=== PATIENT | male | born 1985 | race Caucasian/White ===

== ENCOUNTER 2017-05-11 13:18 | Emergency (ER) | payer SELFPAY ==
--- NOTE | 2017-05-11 13:39 | UC ---
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 PT has not taking anything to alleviate pain. Pain throbbing is 7/10 with movement associated with mild numbness and decrease movement around the area. Pt denies fever, SOB, chest pain, abdominal pain, N/V/D. - History of Current Complaint Chief Complaint: UCUpperExtremity Stated Complaint: WC-LFT HAND INJURY Time Seen by Provider: 05/11/17 13:36 Hx Obtained From: Patient Onset/Duration: Sudden Onset, Lasting Hours - 3 hrs, Still Present Severity Initially: Moderate Severity Currently: Moderate Pain Intensity: 7 Pain Scale Used: 0-10 Numeric Location Of Pain: Is Discrete @ - at the base of left thumb Character: Throbbing Aggravating Factor(s): Movement, Lifting, Flexion, Extension Alleviating Factor(s): Ice, Rest Associated Signs And Symptoms: Positive: Swelling, Numbness/Tingling - Risk Factors Non-Orthopedic Risk Factor: Negative DVT Risk Factors: Negative Septic Arthritis Risk Factor: Negative Compartment Syndrome Risk Factors: Pain - Allergies/Home Medications Allergies/Adverse Reactions: Allergies Allergy/AdvReac Type Severity Reaction Status Date / Time No Known Allergies Allergy Verified 05/11/17 13:36 PMH/Surg Hx/FS Hx/Imm Hx Previously Healthy: Yes - Pt denies PMHX - Surgical History Surgical History: None Surgery Procedure, Year, and Place: TEAR DUCT SX - Family History Known Family History: Positive: Hypertension, Diabetes - Social History Occupation: Employed Full-time Lives: With Family Alcohol Use: Occasionally Substance Use Type: None Smoking Status (MU): Current Every Day Smoker Type: Cigarettes Amount Used/How Often: LESS THAN 1 PPD Length of Time of Smoking/Using Tobacco: 10 YRS Have You Smoked in the Last Year: Yes Review of Systems Constitutional: Negative Skin: Negative Eyes: Negative ENT: Negative Respiratory: Negative Cardiovascular: Negative Gastrointestinal: Negative Genitourinary: Negative Motor: Decreased ROM - lef thumb Musculoskeletal: Decreased ROM - left thumb, Other: - left thumb pain s/p injury Neurological: Negative Psychological: Negative Is Patient Immunocompromised?: No All Other Systems Reviewed And Are Negative: Yes Physical Exam Triage Information Reviewed: Yes Vital Signs: Initial Vital Signs Temp 98.6 F 05/11/17 13:33 Pulse 80 05/11/17 13:33 Resp 16 05/11/17 13:33 BP 119/86 05/11/17 13:33 Pulse Ox 100 05/11/17 13:33 - Additional Comments Vital Signs Reviewed: Yes General: Well developed well nourished male sitting in the examining table w/o any apparent distress Eyes: Positive: Conjunctiva Clear - PERRLA, EOMI ENT: Positive: Normal ENT inspection, Hearing grossly normal, Pharynx normal, TMs normal Neck: Positive: Supple, Nontender, No Lymphadenopathy Respiratory: Positive: Chest non-tender, Lungs clear, Normal breath sounds, No respiratory distress Cardiovascular: Positive: RRR, No Murmur, Pulses Normal, Brisk Capillary Refill Abdomen Description: Positive: Nontender, No Organomegaly, Soft. Negative: CVA Tenderness (R), CVA Tenderness (L) Bowel Sounds: Positive: Present Musculoskeletal: Positive: Strength Intact, No Edema, Other: - Hand/Fingers: the L hand is without obvious asymmetry or deformity when compared to the R hand. mild swelling around dorsal side of LF #1 MCPJ, , no erythema, atrophy, No surface trauma, open wounds,bony deformity. Normal cascade of fingers. Normal flexion and extension of fingers, except for LF #1 phalanx due to pain. . Pulses and capillary refill WNL, positive reflexes and sensation intact, capillary refill brisk. 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 PT has not taking anything to alleviate pain. Pain throbbing is 7/10 with movement associated with mild numbness and decrease movement around the area. Pt denies fever, SOB, chest pain, abdominal pain, N/V/ D. Hx obtained. Left # first digit X-ray ordered: impression: There was no fracture, dislocation, soft tissue swelling. Probably a finger sprain. Pt's finger immobilized with a Thumb spica splint. Pt advised RICE and take Naproxen PO for pain. F/u with Orthopedic in 1 week if not improvement of symptoms. Pt understood and agreed with D/C instructions. - Differential Dx/Diagnosis Differential Diagnosis/HQI/PQRI: Contusion, Fracture (Closed), Strain, Sprain Provider Diagnoses: 1-left #1 phalanx pain and swelling s/p injury Discharge - Discharge Plan Condition: Stable Disposition: HOME Prescriptions: Naproxen [Naproxen 500 mg] 500 mg PO Q8H PRN #30 tab PRN Reason: Pain Patient Education Materials: Finger Sprain (ED) Forms: *Work Release Referrals: [facility] [place] [facility] [Outside] Josh Crockett MD [Medical Doctor] - 1 Week Additional Instructions: 1-Please take medications as directed to alleviate pain and swelling. 2-Please apply ice, keep your thumb immobilized with the splint. rest 3- Please f/u with Orthopedic or your PCP in 1 week is not improvement of symptoms for further evaluation and treatment.
[2017-05-11 13:45] VITALS: BP 119/86
[2017-05-11] MEDS ORDERED: Ibuprofen TAB* 400 MG PO ONE (13:47)
--- NOTE | 2017-05-11 14:13 | RAD ---
INDICATION: Left thumb injury COMPARISON: None TECHNIQUE: AP, lateral, and oblique views were obtained. FINDINGS: The bony structures, joint spaces, and soft tissues are normal for age. IMPRESSION: NEGATIVE EXAMINATION.
== END 2017-05-11 14:39 | disposition home or self-care (01) ==
LOC: UCCORT 13:18
DX: M79.645 Pain in left finger(s) (principal); Z72.89 Other problems related to lifestyle; Z72.0 Tobacco use; M79.89 Other specified soft tissue disorders; X50.0XXA Overexertion from strenuous movement or load, initial encounter; X50.9XXA Other and unspecified overexertion or strenuous movements or postures, initial encounter; X50.3XXA Overexertion from repetitive movements, initial encounter; Y93.89 Activity, other specified; Y92.69 Other specified industrial and construction area as the place of occurrence of the external cause
CPT/HCPCS: 99213; A9270-GY; G0463

== ENCOUNTER 2019-04-07 17:54 | Emergency (ER) | payer SELFPAY ==
[2019-04-07 18:25] VITALS: BP 111/69
[2019-04-07] MEDS ORDERED: Ibuprofen TAB* 600 MG PO ONE (18:26)
--- NOTE | 2019-04-07 19:19 | UC ---
Hand/Wrist HPI - HPI Summary HPI Summary: Patient is a 33-year-old male presenting with left hand pain after punching a wall with bricks behind the dry wall today at around 1600. Patient states he felt pain immediately and has not improved since. He notes swelling of ulnar aspect of his hand. States he cannot flex his ring and pinky fingers due to pain. Denies tingling but notes numbness over his dorsal hand. States he has not taken anything for pain yet. He is concerned it is broken. - History Of Current Complaint Chief Complaint: UCUpperExtremity Stated Complaint: LT HAND INJURY Hx Obtained From: Patient Onset/Duration: Sudden Onset, Lasting Hours Severity Currently: Severe Pain Intensity: 9 Pain Scale Used: 0-10 Numeric - Allergies/Home Medications Allergies/Adverse Reactions: Allergies Allergy/AdvReac Type Severity Reaction Status Date / Time No Known Allergies Allergy Verified 04/07/19 18:19 Home Medications: Home Medications NK [No Home Medications Reported] 04/07/19 [History Confirmed 04/07/19] PMH/Surg Hx/FS Hx/Imm Hx Previously Healthy: Yes - Surgical History Surgical History: None Surgery Procedure, Year, and Place: TEAR DUCT SX - Family History Known Family History: Positive: Hypertension, Diabetes, Non-Contributory - Social History Alcohol Use: Occasionally Substance Use Type: None Smoking Status (MU): Light Every Day Tobacco Smoker Type: Cigarettes Amount Used/How Often: LESS THAN 1 PPD Length of Time of Smoking/Using Tobacco: 10 YRS Have You Smoked in the Last Year: Yes Review of Systems All Other Systems Reviewed And Are Negative: No Constitutional: Positive: Negative Skin: Negative: Bruising Respiratory: Positive: Negative Cardiovascular: Positive: Negative Gastrointestinal: Positive: Negative Neurovascular: Positive: Negative Musculoskeletal: Positive: Arthralgia - L hand, Decreased ROM - L 4th and 5th finger flexion d/t pain, Edema - L dorsal hand Neurological: Positive: Numbness - over dorsal hand. 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 I placed an ulnar gutter splint and the patient received ibuprofen for pain. Instructed to keep the splint on until follow-up with orthopedics. Instructed to follow-up with orthopedics as soon as possible. Patient voiced understanding and agreed with the treatment plan. - Differential Dx/Diagnosis Provider Diagnosis: Fracture of fifth metacarpal bone of left hand Discharge ED - Sign-Out/Discharge Documenting (check all that apply): Patient Departure All imaging exams completed and their final reports reviewed: No - Discharge Plan Condition: Stable Disposition: HOME Patient Education Materials: Boxer Fracture (ED) Referrals: Lucía Street MD [Medical Doctor] - As Soon As Possible Additional Instructions: As discussed, your xray was read by the provider who treated you. There was a fracture of your fifth metacarpal. The official xray report will be obtained tomorrow. You received a splint tonight which you should leave on until you are able to follow up with orthopedics. You should elevate the hand and continue with ibuprofen as directed to help relieve pain and swelling. It is important that you follow up with the orthopedic referral listed below as soon as possible. Go to the emergency room if pain worsens, the hand becomes cold and numb, or you unable to move the hand at all. - Billing Disposition and Condition Condition: STABLE Disposition: Home
--- NOTE | 2019-04-08 13:54 | UC ---
- Progress Note Progress Note: official xray report is c/w reading of metacarpal frx that the REYES saw as well. no changes Course/Dx - Diagnoses Provider Diagnoses: Fracture of fifth metacarpal bone of left hand Discharge ED - Sign-Out/Discharge Documenting (check all that apply): Post-Discharge Follow Up All imaging exams completed and their final reports reviewed: Yes - Discharge Plan Condition: Stable Disposition: HOME Patient Education Materials: Boxer Fracture (ED) Referrals: Lucía Street MD [Medical Doctor] - As Soon As Possible Additional Instructions: As discussed, your xray was read by the provider who treated you. There was a fracture of your fifth metacarpal. The official xray report will be obtained tomorrow. You received a splint tonight which you should leave on until you are able to follow up with orthopedics. You should elevate the hand and continue with ibuprofen as directed to help relieve pain and swelling. It is important that you follow up with the orthopedic referral listed below as soon as possible. Go to the emergency room if pain worsens, the hand becomes cold and numb, or you unable to move the hand at all. - Billing Disposition and Condition Condition: STABLE Disposition: Home
== END 2019-04-07 19:57 | disposition home or self-care (01) ==
LOC: UCCORT 17:54
DX: S62.397A Other fracture of fifth metacarpal bone, left hand, initial encounter for closed fracture (principal); W22.09XA Striking against other stationary object, initial encounter; Y92.9 Unspecified place or not applicable; F17.210 Nicotine dependence, cigarettes, uncomplicated
CPT/HCPCS: 26600; 26755; 99212; A9270-GY; G0463